=== PATIENT | female | born 1955 | race African-American/Black ===

== ENCOUNTER 2017-05-16 16:18 | Emergency (ER) | payer OTHER ==
[~2017-05-16] VITALS: Ht 160 cm; Wt 73.0 kg
[2017-05-16] MEDS ORDERED: IBUPROFEN 600MG TABLET PO ONE (17:30)
[2017-05-16 17:39] VITALS: BP 196/103
== END 2017-05-16 17:59 | disposition home or self-care (01) ==
LOC: ER 16:32
DX: S89.92XA Unspecified injury of left lower leg, initial encounter (principal); I10 Essential (primary) hypertension; W22.8XXA Striking against or struck by other objects, initial encounter; Y93.89 Activity, other specified; Y92.89 Other specified places as the place of occurrence of the external cause; Y99.8 Other external cause status
CPT/HCPCS: 81025; 99283